=== PATIENT | male | born 1970 | race Two or more races ===

== ENCOUNTER 2020-11-03 05:34 | Day surgery (SDC) | payer OTHER ==
[~2020-11-03 05:34] MED LIST: ADULT LOW DOSE81 M1 PO; ATORVASTATIN CA10 MG PO; GLIMEPIRIDE2 M1 PO; LANTUS SOL100 UNIT/1; NORVASC2.5 M1 PO; TOPROL XL100 M1 PO
== END 2020-11-03 11:05 | disposition home or self-care (01) ==
LOC: CIR.AMB 05:34
PROVIDERS: ATTEND Surgery Surgery of the Hand
DX: M65.842 Other synovitis and tenosynovitis, left hand (principal); Z20.822 Contact with and (suspected) exposure to COVID-19